=== PATIENT | male | born 1970 | race Caucasian/White ===

== ENCOUNTER 2017-12-21 12:13 | Emergency (ER) | payer OTHER ==
--- NOTE | 2017-12-21 12:57 | EDM.PDOC ---
ED HPI GENERAL MEDICAL PROBLEM - General Chief Complaint: Lower Extremity Injury/Pain Stated Complaint: LEFT ANKLE Time Seen by Provider: 12/21/17 12:45 Source of Information: Reports: Patient History Limitations: Reports: No Limitations - History of Present Illness INITIAL COMMENTS - FREE TEXT/NARRATIVE: Blair presents with complaints of left ankle pain, edema after rolling it last night at 2200. He states he took advil this morning at 0600 and it did help the pain a little bit. - Related Data Allergies Allergy/AdvReac Type Severity Reaction Status Date / Time No Known Allergies Allergy Verified 12/21/17 12:39 Home Meds: Home Meds NK [No Known Home Meds] 12/21/17 [History] Past Medical History Musculoskeletal History: Reports: Back Pain, Chronic - Past Surgical History GI Surgical History: Reports: Appendectomy Musculoskeletal Surgical History: Reports: Shoulder Surgery Social & Family History - Tobacco Use Smoking Status *Q: Never Smoker Review of Systems - Review of Systems Review Of Systems: See Below Constitutional: Reports: No Symptoms Eyes: Reports: No Symptoms Ears: Reports: No Symptoms Nose: Reports: No Symptoms Mouth/Throat: Reports: No Symptoms Respiratory: Reports: No Symptoms Cardiovascular: Reports: No Symptoms GI/Abdominal: Reports: No Symptoms Musculoskeletal: Reports: Joint Pain, Other (Left ankle pain and edema, difficulty with ambulation. ) Skin: Reports: No Symptoms Neurological: Reports: No Symptoms Psychiatric: Reports: No Symptoms ED EXAM, GENERAL - Physical Exam Exam: See Below Free Text/Narrative:: Blair presents to the emergency room with complaints of left ankle pain after rolling it last night at 2200. He has tried ibuprofen this am for his pain. He has difficulty and pain with ambulation. Exam Limited By: No Limitations General Appearance: Alert, WD/WN, No Apparent Distress Eye Exam: Bilateral Eye: Normal Inspection, PERRL Head: Atraumatic, Normocephalic Neck: Normal Inspection, Supple, Non-Tender, Full Range of Motion. No: Lymphadenopathy (R), Lymphadenopathy (L) Respiratory/Chest: No Respiratory Distress, Lungs Clear, Normal Breath Sounds, No Accessory Muscle Use, Chest Non-Tender Cardiovascular: Normal Peripheral Pulses, Regular Rate, Rhythm, No Edema, No Murmur Peripheral Pulses: 2+: Dorsalis Pedis (L), Dorsalis Pedis (R) Back Exam: Normal Inspection, Full Range of Motion. No: CVA Tenderness (R), CVA Tenderness (L) Extremities: No Pedal Edema, Normal Capillary Refill, Other (Decreased ROM to left ankle, pain with movement and while weightbearing. ) Neurological: Alert, Oriented, CN II-XII Intact, Normal Cognition, Normal Reflexes, No Motor/Sensory Deficits, Other (Limping gait due to pain of left ankle. ) Psychiatric: Normal Affect, Normal Mood Skin Exam: Warm, Dry, Intact, Normal Color, No Rash, Other (mild edema to left ankle) Lymphatic: No Adenopathy Course - Vital Signs Last Recorded V/S: Last Vital Signs Temp 36.5 C 12/21/17 12:45 Pulse 81 12/21/17 12:45 Resp 14 12/21/17 12:45 BP 140/75 12/21/17 12:45 Pulse Ox 97 12/21/17 12:45 - Orders/Labs/Meds Orders: Active Orders 24 hr Category Date Time Status Ankle Min 3V Lt [CR] Stat Exams 12/21/17 12:52 Taken - Radiology Interpretation Free Text/Narrative:: X-ray reviewed and wet read, no acute findings noted. Patient can be discharged to home with cam-walking boot to left leg, ramos wrap. Departure - Departure Time of Disposition: 13:33 Disposition: Home, Self-Care 01 Condition: Good Clinical Impression: Severe sprain of left ankle - Discharge Information Instructions: Ankle Sprain, [id number] Referrals: PCP,None [Primary Care Provider] - Forms: ED Department Discharge Additional Instructions: You have been treated and evaluated for severe left sprain of the ankle. It would be best for you to wear the cam-walking boot at all times for support. Ramos wrap for compression for the first 7 days to help with swelling. Keep your ankle elevated as much as possible for the first three days to help with pain and swelling. Ice your ankle for 20 minutes at a time twice per hour while awake today and tomorrow to help with pain and swelling. You can take ibuprofen 800mg by mouth three times a day with food to help with pain. Acetaminophen 1000mg by mouth three times a day for pain can also help. Follow up with your primary or ORTHO provider of choice in the next 7 to 10 days for recheck. For severe sprains, the use of physical therapy can help with healing. Return for any worsening, issues or concerns. - My Orders Last 24 Hours: My Active Orders 12/21/17 12:52 Ankle Min 3V Lt [CR] Stat - Assessment/Plan Last 24 Hours: My Active Orders 12/21/17 12:52 Ankle Min 3V Lt [CR] Stat Assessment:: Severe sprain left ankle Plan: Patient evaluated for severe left sprain of the ankle. It would be best for him to wear the cam-walking boot at all times for support. Ramos wrap for compression for the first 7 days to help with swelling. Keep ankle elevated as much as possible for the first three days to help with pain and swelling. Ice ankle for 20 minutes at a time twice per hour while awake today and tomorrow to help with pain and swelling. He can take ibuprofen 800mg by mouth three times a day with food to help with pain. Acetaminophen 1000mg by mouth three times a day for pain can also help. Follow up with primary or ORTHO provider of choice in the next 7 to 10 days for recheck. For severe sprains, the use of physical therapy can help with healing. Return for any worsening, issues or concerns.
--- NOTE | 2017-12-23 08:59 | CR ---
Ankle Min 3V Lt CLINICAL HISTORY: Pain, injury FINDINGS: The soft tissues are prominent over the lateral malleolus. No acute fracture or dislocation is noted. Ankle mortise is intact. Articular surfaces are smooth Impression: Soft tissue swelling No fracture or dislocation
== END 2017-12-21 13:59 | disposition home or self-care (01) ==
LOC: JP.ED 12:13
DX: S93.402A Sprain of unspecified ligament of left ankle, initial encounter (principal); X50.9XXA Other and unspecified overexertion or strenuous movements or postures, initial encounter
CPT/HCPCS: 73610-26-LT; 73610-LT; 99284